=== PATIENT | female | born 1945 | race Caucasian/White ===

== ENCOUNTER → 2018-03-23 15:13 | Outpatient (CLI) | payer MEDICARE, SELFPAY ==
--- NOTE | 2018-03-23 15:18 | XR_ITS ---
XR knee RT 2V HISTORY: ITS.REASON: RT KNEE PAIN ORDERING PHYSICIAN: Lazara Mirza MD PATIENT AGE: 72 years COMPARISON: None FINDINGS: No fracture or dislocation. No lytic or blastic change. Normal mineralization. Mild osteoarthritic changes involve the medial compartment and patellofemoral joint. IMPRESSION: Mild osteoarthritis
== END ==
PROVIDERS: PCP Family Medicine; Visit Provider Family Medicine
DX: M25.561 Pain in right knee (principal)
CPT/HCPCS: 73560

== ENCOUNTER → 2018-05-04 14:00 | Outpatient (CLI) | payer MEDICARE, SELFPAY ==
--- NOTE | 2018-05-04 14:09 | XR_ITS ---
XR chest 2V HISTORY: ITS.REASON: HTN ORDERING PHYSICIAN: Lazara Mirza MD PATIENT AGE: 72 years COMPARISON: None FINDINGS: The cardiomediastinal silhouette and pulmonary vascularity are within normal limits. No lobar consolidation or collapse. There is calcified granuloma in the right midlung. No acute bony anomalies. IMPRESSION: No acute findings
== END ==
PROVIDERS: PCP Family Medicine; Visit Provider Family Medicine
DX: M25.561 Pain in right knee (principal); Z01.818 Encounter for other preprocedural examination
CPT/HCPCS: 71046

== ENCOUNTER → 2020-02-21 10:22 | Outpatient (CLI) | payer MEDICARE, SELFPAY ==
--- NOTE | 2020-02-21 10:26 | XR_ITS ---
PROCEDURE: XR WRIST RT MIN 3V CLINICAL INDICATION: RT WRIST PAIN COMPARISON: No exams were available for comparison FINDINGS: No fracture or dislocation. No lytic or blastic change. There is normal mineralization. Mild osteoarthritic changes are present at the 1st metacarpal-carpal joint and at the 1st interphalangeal joint. There is mild chondrocalcinosis of the triangular fibrocartilage. Other findings:None. IMPRESSION: Chronic changes, no acute finding Dictated by: Austin Jin MD 02/21/2020 11:48 Austin Jin MD in [facility] 02/21/2020 11:48
== END ==
PROVIDERS: PCP Family Medicine; Visit Provider Family Medicine
DX: M25.531 Pain in right wrist (principal)
CPT/HCPCS: 73110

== ENCOUNTER → 2020-12-04 15:28 | Outpatient (CLI) | payer MEDICARE, SELFPAY ==
[2020-12-04 16:33] LABS: Blood Urea Nitrogen 9 mg/dl (7-17); Estimated Glomerular Filt Rate 61 ml/min (>60); GFR (African American) 74 ML/MIN (>60)
== END ==
PROVIDERS: Visit Provider Family Medicine
DX: R74.8 Abnormal levels of other serum enzymes (principal)
CPT/HCPCS: 36415; 82565; 84520

== ENCOUNTER → 2020-12-12 08:33 | Outpatient (CLI) | payer MEDICARE, SELFPAY ==
--- NOTE | 2020-12-12 08:36 | CT_ITS ---
PROCEDURE INFORMATION: Exam: CT Abdomen Without And With Contrast, Liver Exam date and time: 12/12/2020 8:36 AM Age: 75 years old Clinical indication: Abnormal findings; Abnormal lab test; Elevated liver enzymes TECHNIQUE: Imaging protocol: Computed tomography images of the abdomen without and with intravenous contrast. Radiation optimization: All CT scans at this facility use at least one of these dose optimization techniques: automated exposure control; mA and/or kV adjustment per patient size (includes targeted exams where dose is matched to clinical indication); or iterative reconstruction. Contrast material: ISOVUE 370; Contrast volume: 75 ml; Contrast route: IV; COMPARISON: CR CXR2V XR chest 2V 05/04/2018 2:11 PM FINDINGS: Liver: There is a focal 8 mm liver hypodensity that cannot be further characterized on the current examination, statistically a small cyst. No liver mass. There is diffuse decrease in hepatic parenchymal density, consistent with fatty infiltration. Gallbladder and bile ducts: No gallbladder is identified. Pancreas: Normal. No ductal dilation. Spleen: Normal. No splenomegaly. Adrenals: Normal. No mass. Kidneys and ureters: There is a simple 3.5 cm cyst in the right kidney. No follow-up imaging is recommended. Stomach and bowel: There is a duodenal diverticulum. Intraperitoneal space: Unremarkable. No free air. No significant fluid collection. Lymph nodes: Unremarkable. No enlarged lymph nodes. Vasculature: Unremarkable. No abdominal aortic aneurysm. Bones/joints: Unremarkable. No acute fracture. No dislocation. Soft tissues: There has been a ventral hernia repair. IMPRESSION: Hepatic steatosis. No mass. COMMENTS: Consistent with the [employer]'s Incidental Findings Committee white paper (J Am Diane Radiol 2018): Any incidental renal lesion less than 1 cm or classified as too small to characterize, or any incidental cystic renal lesion characterized as simple-appearing, is likely benign. No follow-up imaging is recommended for these lesions per consensus recommendations based on imaging criteria.
== END ==
PROVIDERS: PCP Family Medicine; Visit Provider Family Medicine
DX: R74.8 Abnormal levels of other serum enzymes (principal); R94.5 Abnormal results of liver function studies
CPT/HCPCS: 74170; Q9967

== ENCOUNTER → 2022-09-04 12:09 | Outpatient (CLI) | payer MEDICARE, SELFPAY ==
--- NOTE | 2022-09-04 12:17 | XR_ITS ---
FINAL REPORT CLINICAL HISTORY: EDEMA FINDINGS: Chest: A single view of the chest demonstrates no acute cardiopulmonary process. There are at calcified granuloma in the right middle lobe. Abdomen: Flat and upright views of the abdomen demonstrate a nonobstructive gas pattern. There is a large amount of retained stool. There is no free air. There is approximately 15 degrees of lumbar scoliosis convex to the left. IMPRESSION: Large amount of retained stool, consistent with constipation. Reviewed, Interpreted and Dictated by Prieto Alvarez MD Transcribed by Sanjuana Ibarra Authenticated and [facility]
== END ==
PROVIDERS: PCP Family Medicine; Visit Provider Family Medicine
DX: R60.9 Edema, unspecified (principal)
CPT/HCPCS: 74021

== ENCOUNTER → 2022-09-23 08:51 | Outpatient (CLI) | payer MEDICARE, SELFPAY ==
--- NOTE | 2022-09-23 08:55 | CT_ITS ---
FINAL REPORT TECHNIQUE: Pre- and postcontrast images of the abdomen were performed by computed tomography. This study was performed with techniques to keep radiation doses as low as reasonably achievable (ALARA). Individualized dose reduction techniques using automated exposure control or adjustment of mA and/or kV according to the patient's size were employed. CLINICAL HISTORY: ABDOMINAL FULLNESS FINDINGS: CT ABDOMEN W & W/O CONTRAST There is mild bibasilar atelectasis or scarring. There is a moderate to large amount of ascites. The liver is heterogeneous with an irregular contour which is consistent with cirrhosis. There are several small hepatic nodules seen which are nonspecific but may represent regenerative nodules. The gallbladder is surgically absent. The spleen is mildly enlarged measuring 12.6 cm. There is mild anasarca. The adrenals are normal. The pancreas is unremarkable. There is a small right renal cyst. There are postoperative changes of the anterior pelvic wall. Several duodenal diverticula are noted. IMPRESSION: Findings of cirrhosis. Moderate to large ascites. Mild splenomegaly. Reviewed, Interpreted and Dictated by Von Garvey III, MD Transcribed by Sanjuana Ibarra Authenticated and [facility]
== END ==
PROVIDERS: PCP Family Medicine; Visit Provider Family Medicine
DX: R19.8 Other specified symptoms and signs involving the digestive system and abdomen (principal)
CPT/HCPCS: 74170; Q9967